=== PATIENT | female | born 1970 | race American Indian/Alaskan Native ===

== ENCOUNTER 2021-10-20 21:18 | Emergency (ER) | payer OTHER ==
[2021-10-21] MEDS ORDERED: HYDROcodone/ACETAMINOPHEN 5-325 MG TAB PO ONE (04:18)
[2021-10-21] MEDS ORDERED: predniSONE 20 MG TAB PO ONE (04:18)
[2021-10-21] MEDS ORDERED: IBUPROFEN 600 MG TAB PO ONE (04:18)
[2021-10-21] MEDS ORDERED: ONDANSETRON 4 MG ODT TAB PO ONE (04:18)
[2021-10-21] MEDS ORDERED: diazePAM 5 MG TAB PO ONE (04:18)
[2021-10-21] MEDS ORDERED: CYCLOBENZAPRINE 10 MG TAB PO ONE (04:48)
--- NOTE | 2021-10-21 05:31 | Emergency Department Report ---
ED Back Pain/Injury HPI - General Chief Complaint: Back Pain/Injury Stated Complaint: BACK PAIN Source: patient Limitations: No Limitations - History of Present Illness Initial Comments: Patient is a 50-year-old -[place] female with no past medical history who presents to the ED with complaint of acute onset persistent low back pain after working in her yard, performing heavy lifting for the last 1 week, worse in the last 3 days. Patient states that she has not been able to perform any active range of motion especially in the last 2 days because of worsening pain. Patient denies dizziness, syncope, fall, traumatic injury, numbness and tingling or weakness of lower extremities bilaterally, urinary or bowel incontinence and saddle paresthesia, chest pain or shortness of breath or hematuria. MD Complaint: back pain (lower back) -: Sudden, days(s) (5) Similar Symptoms Previously: Yes (chronic) Place: home Radiation: buttocks Severity: severe Severity scale (0 -10): 8 Quality: sharp, aching Consistency: constant Improves With: none Worsens With: movement, walking Context: while lifting, turning/twisting, bending Associated Symptoms: denies other symptoms. denies: confusion, weakness, chest pain, numbness, difficulty walking, cough, diaphoresis, incontinence, constipation, abdominal pain, loss of appetite, nausea/vomiting, rash, shortness of breath, syncope - Related Data Previous Rx's Medication Instructions Recorded Last Taken Type Ibuprofen [Motrin] 800 mg PO Q8HR PRN #30 tablet 10/21/21 Unknown Rx methOCARBAMOL [Robaxin TAB] 750 mg PO Q8H PRN #30 tab 10/21/21 Unknown Rx predniSONE [Deltasone] 40 mg PO QDAY #10 tab 10/21/21 Unknown Rx traMADoL [Ultram] 50 mg PO Q6HR PRN #12 tablet 10/21/21 Unknown Rx Allergies Allergy/AdvReac Type Severity Reaction Status Date / Time wheat Allergy Itching Verified 10/20/21 23:48 ED Review of Systems ROS: Stated complaint: BACK PAIN Other details as noted in HPI Constitutional: denies: chills, fever Eyes: denies: eye pain, eye discharge, vision change ENT: denies: ear pain, throat pain Respiratory: denies: cough, shortness of breath, wheezing Cardiovascular: denies: chest pain, palpitations Endocrine: no symptoms reported Gastrointestinal: denies: abdominal pain, nausea, diarrhea Genitourinary: denies: urgency, dysuria, discharge Musculoskeletal: back pain (lower back), arthralgia (pelvis). denies: joint swelling Skin: denies: rash, lesions Neurological: denies: headache, weakness, paresthesias Psychiatric: denies: anxiety, depression Hematological/Lymphatic: denies: easy bleeding, easy bruising ED Past Medical Hx - Past Medical History Previous Medical History?: No - Surgical History Past Surgical History?: Yes Additional Surgical History: r knee surgery x 3, right breast lumpectomy - Social History Smoking Status: Never Smoker Substance Use Type: None - Medications Home Medications: Home Medications Medication Instructions Recorded Confirmed Last Taken Type Ibuprofen [Motrin] 800 mg PO Q8HR PRN #30 tablet 10/21/21 Unknown Rx methOCARBAMOL [Robaxin TAB] 750 mg PO Q8H PRN #30 tab 10/21/21 Unknown Rx predniSONE [Deltasone] 40 mg PO QDAY #10 tab 10/21/21 Unknown Rx traMADoL [Ultram] 50 mg PO Q6HR PRN #12 tablet 10/21/21 Unknown Rx ED Physical Exam - General Limitations: No Limitations General appearance: alert, in no apparent distress - Head Head exam: Present: atraumatic, normocephalic, normal inspection - Eye Eye exam: Present: normal appearance, PERRL, EOMI Pupils: Present: normal accommodation - ENT ENT exam: Present: normal exam, normal orophraynx, mucous membranes moist, TM's normal bilaterally, normal external ear exam - Neck Neck exam: Present: normal inspection, full ROM. Absent: tenderness - Respiratory Respiratory exam: Present: normal lung sounds bilaterally. Absent: respiratory distress, wheezes, rales, rhonchi, chest wall tenderness, accessory muscle use, decreased breath sounds, prolonged expiratory - Cardiovascular Cardiovascular Exam: Present: regular rate, normal rhythm, normal heart sounds. Absent: systolic murmur, diastolic murmur, rubs, gallop - GI/Abdominal GI/Abdominal exam: Present: soft, normal bowel sounds. Absent: distended, t enderness, guarding, rebound, hyperactive bowel sounds, hypoactive bowel sounds, organomegaly - Extremities Exam Extremities exam: Present: normal inspection, full ROM, normal capillary refill. Absent: tenderness - Back Exam Back exam: Present: normal inspection, full ROM, tenderness (Palpable lumbosacral paraspinal musculoskeletal tenderness), muscle spasm, paraspinal tenderness. Absent: CVA tenderness (L) - Neurological Exam Neurological exam: Present: alert, oriented X3, CN II-XII intact, normal gait, reflexes normal - Psychiatric Psychiatric exam: Present: normal affect, normal mood - Skin Skin exam: Present: warm, dry, intact, normal color. Absent: rash ED Course Vital Signs 10/20/21 23:48 Temperature 98.3 F Pulse Rate 72 Respiratory 16 Rate Blood Pressure 109/75 O2 Sat by Pulse 100 Oximetry ED Medical Decision Making - Medical Decision Making This is a 50-year-old -[place] female with no past medical history who presents to the ED with complaint of acute onset persistent low back pain after working in her yard, performing heavy lifting for the last 1 week, worse in the last 3 days. Patient states that she has not been able to perform any active range of motion especially in the last 2 days because of worsening pain. In the ED, patient is alert and oriented x3 and is not in any distress. Patient was treated for pain in the ED. On reevaluation, patient's pain is well controlled medication. Patient symptoms are likely musculoskeletal following heavy lifting at home. - Differential Diagnosis Muscle spasm; muscle strain; Critical care attestation.: If time is entered above; I have spent that time in minutes in the direct care of this critically ill patient, excluding procedure time. ED Disposition Clinical Impression: Strain of muscle, fascia and tendon of lower back, initial encounter, Spasm of muscle of lower back Acute low back pain without sciatica Qualifiers: Back pain laterality: bilateral Qualified Code(s): M54.50 - Low back pain, unspecified Disposition: HOME / SELF CARE / HOMELESS Is pt being admited?: No Does the pt Need Aspirin: No Condition: Stable Instructions: Muscle Cramps and Spasms, [id number], Muscle Strain, [id number], Lumbosacral Strain, Low Back Sprain or Strain Rehab-SportsMed, Back Injury Prevention, [id number] Additional Instructions: Take medication with food, drink plenty of fluids, follow-up with your primary care physician in 7 to 10 days for reevaluation. Return to the ED immediately if symptoms get worse. Prescriptions: predniSONE [Deltasone] 40 mg PO QDAY #10 tab Ibuprofen [Motrin] 800 mg PO Q8HR PRN #30 tablet PRN Reason: Pain , Severe (7-10) methOCARBAMOL [Robaxin TAB] 750 mg PO Q8H PRN #30 tab PRN Reason: Muscle Spasm traMADoL [Ultram] 50 mg PO Q6HR PRN #12 tablet PRN Reason: Pain Referrals: LETY GARCIA MD [Primary Care Provider] - 3-5 Days Forms: Work/School Release Form(ED) Time of Disposition: 05:31 Print Language: CENTRAL AFRICAN
[2021-10-21 06:17] VITALS: BP 112/79
== END 2021-10-21 06:18 | disposition home or self-care (01) ==
LOC: ED 21:18
DX: S39.012A Strain of muscle, fascia and tendon of lower back, initial encounter (principal); M62.830 Muscle spasm of back; X58.XXXA Exposure to other specified factors, initial encounter; Y93.89 Activity, other specified; Y92.89 Other specified places as the place of occurrence of the external cause; Y99.8 Other external cause status
CPT/HCPCS: 99282; J3490; Q0162